=== PATIENT | male | born 1990 | race Caucasian/White ===

== ENCOUNTER 2017-10-21 08:24 | Emergency (ER) | payer OTHER ==
[~2017-10-21] VITALS: Ht 182.9 cm; Wt 169.1 kg
[2017-10-21 09:34] VITALS: BP 130/67
== END 2017-10-21 09:35 | disposition home or self-care (01) ==
LOC: EME 08:24
DX: G40.909 Epilepsy, unspecified, not intractable, without status epilepticus (principal); F17.200 Nicotine dependence, unspecified, uncomplicated
CPT/HCPCS: 93005; 99281; 99283